=== PATIENT | female | born 1970 | race Caucasian/White ===

== ENCOUNTER → 2017-06-21 | Outpatient (CLI) | payer BC ==
--- NOTE | 2017-06-21 14:15 | MAMMOGRAPHY REPORT ---
BILATERAL DIGITAL SCREENING MAMMOGRAM TOMOSYNTHESIS WITH CAD: 06/21/2017 CLINICAL HISTORY: Routine screening. Patient has no complaints. TECHNIQUE: Breast tomosynthesis in addition to standard 2D mammography was performed. Current study was also evaluated with a Computer Aided Detection (CAD) system. COMPARISON: Comparison is made to exams dated: 06/16/2016 mammogram, 06/05/2015 mammogram, 10/25/2014 m ammogram, 03/01/2014 mammogram, 09/21/2013 mammogram, and 02/15/2013 mammogram - [facility] ter. BREAST COMPOSITION: The tissue of both breasts is heterogeneously dense, which may obscure small mas ses. FINDINGS: The parenchymal pattern is similar to prior mammograms. There are multiple stable grouping s of punctate microcalcifications most numerous in each superior breast. No new suspicious mass, arc hitectural distortion or cluster of microcalcifications is seen. IMPRESSION: ACR BI-RADS CATEGORY 1: NEGATIVE There is no mammographic evidence of malignancy. A 1 year screening mammogram is recommended. The pa tient will receive written notification of the results. Approximately 10% of breast cancers are not detected with mammography. A negative mammographic report should not delay biopsy if a clinically suggestive mass is present. Caroline Galdamez M.D. ay/:06/21/2017 09:11:07 Block Paver: [facility](Maria Victoria)(M), [facility] letter sent: Normal 1/2 BI-RADS Code: ACR BI-RADS Category 1: Negative
== END | disposition home or self-care (01) ==
LOC: C.MAMM 08:02
PROVIDERS: ATTEND Advanced Practice Midwife
DX: Z12.31 Encounter for screening mammogram for malignant neoplasm of breast (principal)

== ENCOUNTER → 2017-12-28 | Outpatient (CLI) | payer BC | END | disposition home or self-care (01) | LOC: C.LABMFLN 07:07 | PROVIDERS: ATTEND Family Medicine | DX: Z13.1 Encounter for screening for diabetes mellitus (principal); Z13.220 Encounter for screening for lipoid disorders ==

== ENCOUNTER → 2018-01-24 | Outpatient (CLI) | payer BC ==
[2018-01-24 17:50] LABS: BASO % 0.5 %; BASO ABS # 0.04 K/uL (0-0.2); EOS % 6.3 %; EOS ABS # 0.49 K/uL (0-0.5); HEMATOCRIT 39.3 % (37-47); IG# 0.03 K/uL (0.00-0.02); LYMPH % 27.8 %; LYMPH ABS # 2.16 K/uL (1.2-3.4); MEAN CELL VOLUME 86.4 fL (80-100); MEAN CORPUSCULAR HEMOGLOBIN 30.8 pg (25-34); MEAN CORPUSCULAR HGB CONC 35.6 g/dl (32-36); MEAN PLATELET VOLUME 11.5 fL (7.4-10.4); MONO % 7.3 %; MONO ABS # 0.57 K/uL (0.11-0.59); NEUT % 57.7 %; NEUT ABS # 4.47 K/uL (1.4-6.5); PLATELET COUNT 255 K/uL (130-400); RED CELL DISTRIBUTION WIDTH CV 12.9 % (11.5-14.5); RED CELL DISTRIBUTION WIDTH SD 40.7 fL (36.4-46.3); WHITE BLOOD COUNT 7.76 K/uL (4.8-10.8)
[2018-01-24 18:21] LABS: POTASSIUM 3.7 mmol/L (3.5-5.1)
== END | disposition home or self-care (01) ==
LOC: C.LABMFLN 15:53
PROVIDERS: ATTEND Orthopaedic Surgery Sports Medicine
DX: Z01.810 Encounter for preprocedural cardiovascular examination (principal); Z01.812 Encounter for preprocedural laboratory examination; S83.249A Other tear of medial meniscus, current injury, unspecified knee, initial encounter; X58.XXXA Exposure to other specified factors, initial encounter

== ENCOUNTER → 2018-02-02 | Day surgery (SDC) | payer BC ==
[2018-01-26 07:48] VITALS: Ht 167.6 cm; Wt 71.8 kg
[~2018-02-02] VITALS: Ht 167.6 cm; Wt 71.8 kg
[~2018-02-02] MED LIST: ATROPINE SULFATE 0.1 MG/ML 5ML SYR IV PRN; CEFAZOLIN 1000MG IV PUSH 7.5 ML IV SCH; DEXAMETHASONE SOD INJ 4 MG/ML VIAL ONE; EpHEDrine SULFATE INJ 50 MG/ML AMP IV PRN; EpINEphrine INJ 1MG/ML AMP 1 MG/ML AMP ONE; FENTANYL CITRATE INJ 50 MCG/1 ML 2 ML VIAL IV PRN; FENTANYL CITRATE INJ 50 MCG/1 ML 2 ML VIAL ONE; KETO10TA PO; KETOROLAC TROMETHAMINE 30 MG/ML VIAL ONE; LACTATED RINGER'S 1000ML 1,000 ML IV SCH; LIDOCAINE HCL 2% 2 ML VIAL (20MG/ML) ONE; MIDAZOLAM HCL 1 MG/ML 2ML VIAL ONE; ONDANSETRON INJ 2 MG/ML 2 ML VIAL ONE; OXYC-57 PO; OXYCODONE/ACETAMINOPHEN 5-325 TAB PO PRN; PROPOFOL IV EMULSION 10 MG/ML 20 ML VIAL ONE; ROPIVACAINE 0.5% 5 MG/ML 30 ML VIAL ONE; SODIUM CHLORIDE 0.9% 1000ML 1,000 ML IV SCH; SUCCINYLCHOLINE CHLORIDE 20 MG/ML 10 ML VIAL IV ONE
--- NOTE | 2018-02-02 08:40 | History & Physical Bridge - SC ---
H&P Re-Evaluation Bridge Note: I have examined the patient, reviewed the History & Physical and in the interval since the performance of the History & Physical I have noted the following changes of clinical significance: No changes noted
--- NOTE | 2018-02-02 10:23 | [facility] Post Operative Brief Note ---
Immediate Operative Summary Operative Date February 02, 2018. Pre-Operative Diagnosis Left Knee Medial Meniscus Tear + DJD Post-Operative Diagnosis Same Procedure(s) Performed Left Knee Arthroscopy, Partial Medial Meniscectomy Surgeon Dr. Benz General Internist And Physician Leader Surgeon(s) Yuliya Ritter PA-C Estimated Blood Loss Minimal Findings Consistent with Post-Op Diagnosis Specimens None Drains None Anesthesia Type General Complication(s) none Disposition Accompanied Pt To Recovery: no Disposition: Recovery Room / PACU
--- NOTE | 2018-02-02 10:26 | Discharge Instructions-SurgCtr ---
Discharge Instructions Date of Service February 02, 2018. Visit Reason for Visit: Left Medial Meniscus Tear Discharge Discharge Diagnosis / Problem: left medial meniscus tear Discharge Goals Goal(s): Decrease discomfort, Therapeutic intervention Activity Recommendations Activity Limitations: per Instructions/Follow-up section Weightbearing Status: Left weightbearing (as tolerated) Anesthesia . Post Anesthesia Instructions: If you have had General Anesthesia or IV Sedation: * Do not drive today. * Resume driving when surgeon permits. * Do not make important decisions or sign legal documents today. * Call surgeon for: 1. Temperature elevations greater than 101 degrees F. 2. Uncontrollable pain. 3. Excessive bleeding. 4. Persistent nausea and vomiting. 5. Medication intolerance (nausea, vomiting or rash). * For nausea and vomiting use only clear liquids such as: tea, soda, bouillon until nausea subsides, then gradually increase diet as tolerated. * If you have any concerns or questions, call your surgeon's office. If physician is unavailable and it is an emergency, call 911 or go to the nearest emergency room. . Instructions / Follow-Up Instructions / Follow-Up MEDICATIONS: * Resume previous medications unless instructed otherwise by your surgeon. * Always take pain medication on a full stomach or with food to avoid upset stomach. * Do not drink alcohol or drive while taking narcotics. * Ibuprofen or Tylenol may be taken if narcotic not needed. No ibuprofen while taking toradol SPECIAL CARE INSTRUCTIONS: __ None _x_ Keep extremity elevated and iced x 48 hours; apply ice 20-30 minutes 8-10 times/day. May remove at night. __ Crutches __ May discard when able __ Brace/Post-op shoe __ 24 hrs/day __ Remove at night _x_ Dressing __ Maintain until seen in office, may shower with plastic over site _x_ Remove dressings in 24-48 hours and then may shower _x_ Cover incisions with band-aids after showering __ Do not remove steri-strips Call physician if chills or temperature rises above 102 degrees or pain unrelieved by prescribed pain medications. Office [phone] follow up in 2 weeks Diet Recommendations Home Diet: resume previous diet Procedures Procedures Performed: Left Knee Arthroscopy, Partial Medial Meniscectomy Pending Studies Studies pending at discharge: no Medical Emergencies . Who to Call and When: Medical Emergencies: If at any time you feel your situation is an emergency, please call 911 immediately. . Non-Emergent Contact Non-Emergency issues call your: Surgeon . . "Provider Documentation" section prepared by Kristopher Ritter. .
--- NOTE | 2018-02-02 10:43 | Anesthesia Progress Nt - [facility] ---
Anesthesia Post Op Note Date & Time February 02, 2018 at 10:43 Vital Signs Pain Intensity: 3 Vital Signs Past 12 Hours Date Time Temp Pulse Resp B/P (MAP) Pulse Ox O2 Delivery O2 Flow Rate FiO2 02/02/18 10:32 66 15 02/02/18 10:32 66 15 02/02/18 10:32 65 15 100 02/02/18 10:32 65 15 100 02/02/18 10:31 123/86 02/02/18 10:31 123/86 02/02/18 10:30 36.6 68 18 112/90 100 Mask 5 02/02/18 10:28 112/90 02/02/18 10:28 112/90 02/02/18 09:03 36.5 74 16 118/85 (96) 98 Room Air Notes Mental Status: alert / awake / arousable, participated in evaluation Pt Amnestic to Procedure: Yes Nausea / Vomiting: adequately controlled Pain: adequately controlled Airway Patency, RR, SpO2: stable & adequate BP & HR: stable & adequate Hydration State: stable & adequate Anesthetic Complications: no major complications apparent
[2018-02-02 11:50] VITALS: BP 109/77; PULSE 63; O2SAT 98
--- NOTE | 2018-02-02 11:50 | OPERATIVE REPORT ---
DATE OF OPERATION: 02/02/2018 SURGEON: Eugenio Benz M.D. PATIENT REGISTRAR: IRIS Carmichael PREOPERATIVE DIAGNOSES: 1. Left knee degenerative medial meniscus tear. 2. Left knee degenerative joint disease. POSTOPERATIVE DIAGNOSES: 1. Left knee degenerative medial meniscus tear. 2. Left knee degenerative joint disease. PROCEDURES PERFORMED: 1. Left knee exam under anesthesia. 2. Left knee diagnostic arthroscopy. 3. Left knee arthroscopic partial medial meniscectomy. COMPLICATIONS: None. ESTIMATED BLOOD LOSS: Minimal. TOURNIQUET TIME: 21 minutes at 300 mmHg. ANESTHESIA: General. SPECIMENS: None. 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 She has been unable to maintain their activity level due to the medial-sided pain, intermittent mechanical symptoms. X-rays revealed very mild DJD. MRI suggested a medial meniscus tear. The patient elected to proceed with operative treatment. OPERATIVE FINDINGS: Examination under anesthesia of the left knee revealed a small knee effusion. Range of motion was full extension to 135+ degrees of flexion. There is no clinical instability. Zahra's is negative for mechanical symptoms. ARTHROSCOPIC FINDINGS: Arthroscopic findings revealed a small knee effusion. She did have some grade 2 changes of the patella. The trochlea was pretty well preserved. In the intercondylar notch, the ACL and PCL were intact. In the medial compartment, there was a diffuse grade 2 change at the medial femoral condyle and some small focal areas of grade 3 change. She had a complex degenerative posterior horn of the medial meniscus tear with flaps anterior and posterior as well as a horizontal cleavage component. In the lateral compartment, there were some age-related changes but no tears. OPERATIVE PROCEDURE: The patient was taken to the operating room, identified and placed on the operating table in supine position. All contact areas were appropriately padded. IV antibiotics were provided by anesthesia team. General anesthetic was implemented by anesthesia team. A left thigh tourniquet was then placed and the left knee was then examined under anesthesia with the findings as described above. The left leg was then prepped and draped in usual sterile fashion. The left leg was elevated and exsanguinated with an Esmarch and tourniquet placed at 300 mmHg. Routine left knee arthroscopy was then performed through typical anteromedial and anterolateral portals. A superolateral outflow portal was established for outflow. I did have to resect some of the fat pad. With the use of motorized and hand controlled instruments, a partial medial meniscectomy was then performed. We resected this back to stable tissue. Once this was complete, the arthroscopic instruments were placed throughout the knee joint. All extraneous debris was removed. I did smoothen off the cartilage just lightly at the end of the medial femoral condyle as well as the undersurface of patella. The arthroscopic instruments were then removed from the joint. The portals were closed with 3-0 Prolene suture in a simple fashion. The knee was injected with 30 mL of 0.5% ropivacaine with epinephrine and 30 mg of Toradol. A sterile dressing with Xeroform, 4 x 4's, sterile cast padding and Asael bandage were applied. The patient then brought out of general anesthesia and transferred to the recovery room in stable condition. The patient tolerated the procedure without complications. All needle and sponge counts were correct at the end of the operation. I attest to the content of the Intraoperative Record and any orders documented therein. Any exception s are noted below.
== END | disposition home or self-care (01) ==
LOC: X.SURG 08:23
PROVIDERS: ATTEND Orthopaedic Surgery Sports Medicine
DX: S83.232A Complex tear of medial meniscus, current injury, left knee, initial encounter (principal); M17.12 Unilateral primary osteoarthritis, left knee; X58.XXXA Exposure to other specified factors, initial encounter